=== PATIENT | male | born 2000 | race Caucasian/White ===

== ENCOUNTER 2018-10-13 21:44 | Emergency (ER) | payer BC ==
[~2018-10-13] VITALS: Ht 182.9 cm; Wt 90.9 kg
[2018-10-13 21:51] VITALS: BP 141/77; TEMP 100.9
[2018-10-13 22:33] LABS: STREP SCREEN NEGATIVE
[2018-10-13] MEDS ORDERED: CLEOCIN HCL300 MG PO (22:38)
[2018-10-13 22:50] VITALS: PULSE 89
== END 2018-10-13 22:50 | disposition home or self-care (01) ==
LOC: COL.ER 21:44
PROVIDERS: Physician Assistant
DX: J02.9 Acute pharyngitis, unspecified (principal)
CPT/HCPCS: J1100